=== PATIENT | female | born 1965 | race Caucasian/White ===

== ENCOUNTER 2019-03-07 15:20 | Observation (INO) ==
[2019-03-07] MEDS ORDERED: 0.9 % Sodium Chloride 1,000 ML ONE (15:37)
[2019-03-07] MEDS ORDERED: 0.9 % Sodium Chloride 1,000 ML IVC ONE ×2 (15:43→22:16)
[2019-03-07] MEDS ORDERED: Ondansetron 4 MG/2 ML VIAL IVP ONE ×2 (15:43→20:46)
[2019-03-07] MEDS ORDERED: *HR* FentaNYL (PF) 100 MCG/2 ML VIAL IVP ONE ×2 (15:43→20:45)
[2019-03-07 16:05] LABS: Basophils % 0.1 %; Eosinophils % 0.1 %; Hematocrit 26.1 % (35.3-44.9); Hemoglobin 8.1 g/dL (11.5-15.4); Immature Granulocytes % 1.5 % (0-4); Lymphocytes # 1.6 K/mcL (0.6-4.6); Lymphocytes % 7.5 %; Mean Corpuscular Hemoglobin 25.7 pg (28.0-33.3); Mean Corpuscular Volume 82.9 fL (83.0-100.0); Mean Platelet Volume 10.4 fL (9.4-12.4); Monocytes # 0.9 K/mcL (0.0-1.3); Neutrophils # 19.1 K/mcL (1.6-8.9); Platelet Count 423 K/mcL (140-400); Red Blood Count 3.15 M/mcL (3.82-4.97); Segmented Neutrophils % 86.8 %
--- NOTE | 2019-03-07 16:11 | Emergency Department Note ---
Disposition Clinical Impression: Pelvic mass Abdominal pain Qualifiers: Abdominal location: left lower quadrant Qualified Code(s): R10.32 - Left lower quadrant pain Disposition: Still a Patient Condition: Fair Forms: ED Satisfaction Letter, Work/School Release Time of Disposition: 17:46 General Adult HPI - General Chief complaint: ED Abdominal Pain Stated complaint: multiple complaints x's 2 weeks Time Seen by Provider: 03/07/19 15:26 Source: patient, EMS Mode of arrival: EMS Limitations: no limitations Nursing Notes Reviewed: Yes Vital Signs Reviewed: Yes - History of Present Illness HPI Narrative: Patient is a 53-year-old female that presents emergency Department with reports of abdominal pain. Patient states that the pain is located in her left lower quadrant. Patient denies any dysuria. Patient denies any vaginal discharge. Patient does state that she has had some chronic vaginal bleeding over the past year. Patient denies any fevers but states she does not have a thermometer. Patient states that she has had some nausea and vomiting. Patient states that she had a bowel movement this morning which is normal for her and was firm and formed. Patient states that she has had similar pain in the past and it was diverticulitis. Patient states that this is similar to that pain. Patient denies any blood in her stool or diarrhea. Pain Scale: 10 - Related Data Home Medications Medication Instructions Recorded Confirmed Albuterol Sulfate [Proair Hfa] 2 puff IH Q4H PRN 03/07/19 03/07/19 Ascorbate Calcium [Vitamin C] 500 mg PO BIDWM 03/07/19 03/07/19 Cholecalciferol (D-3) [Vitamin D] 2,000 unit PO DAILY 03/07/19 03/07/19 Ferrous Sulfate [Iron] 325 mg PO BIDWM 03/07/19 03/07/19 Lisinopril-HCTZ 20-12.5 [Prinzide 1 each PO DAILY 03/07/19 03/07/19 20-12.5] predniSONE [PredniSONE] 20 mg PO TIDWM 03/07/19 03/07/19 Allergies Allergy/AdvReac Type Severity Reaction Status Date / Time Sulfa (Sulfonamide AdvReac Rash Verified 01/16/18 10:46 Antibiotics) All systems ED: reviewed and negative except as stated. Constitutional: Denies: fever Cardiovascular: Denies: chest pain Respiratory: Denies: dyspnea Gastrointestinal: Denies: nausea, vomiting Genitourinary: Denies: urgency, dysuria, frequency Neurological: Denies: weakness, numbness, paresthesias Past Medical History - Past Medical History Medical history: Reports: hypertension Psychiatric history: Reports: no psych history - Social History Smoking Status: Never smoker Smokeless Tobacco Status: No Alcohol use: Reports: occasionally Drug use: Reports: none Physical Exam - General Limitations: no limitations General appearance: alert, in no apparent distress - Head Head exam: atraumatic, normocephalic - Eye Eye exam: Present: normal appearance, EOMI - Neck Neck exam: Present: normal inspection, full ROM, trachea midline - Respiratory Respiratory exam: Present: normal lung sounds bilaterally. Absent: respiratory distress, wheezes - Cardiovascular Cardiovascular exam: Present: regular rate, normal rhythm, normal heart sounds, +S1, +S2 - Abdominal Exam Abdominal exam: Present: soft, Non-Tender, normal bowel sounds - Neurological Exam Neurological exam: Present: alert, oriented X3 - Expanded Neurological Exam Speech: Present: fluid speech Cranial nerves: EOM function (II, III, IV, ): Normal, facial sensation (V): Normal, facial palsy (VII): Normal, gag reflex (IX): Normal, spinal accessory function (XI): Normal, tongue deviation (XII): Normal Cerebellar function: finger to nose: Normal, heel to [place]: Normal Motor strength - LUE: 5/5 Motor strength - RUE: 5/5 Motor strength - LLE: 5/5 Motor strength - RLE: 5/5 Upper motor neuron exam: pronator drift: Absent bilaterally Sensory exam upper extremity: light touch: Normal Sensory exam lower extremity: light touch: Normal Coma Scale Eye Opening: Spontaneous Coma Scale Motor Response: Obeys Commands Coma Scale Verbal Response: Oriented Coma Scale Total: 15 - Psychiatric Psychiatric exam: Present: normal affect, normal mood - Skin Skin exam: Present: warm, dry, intact Course Vital Signs Temperature 99.1 F 03/07/19 15:23 Pulse Rate 124 03/07/19 15:23 Respiratory Rate 16 03/07/19 15:23 Blood Pressure 94/60 03/07/19 15:23 O2 Sat by Pulse Oximetry 96 03/07/19 15:23 Temperature 99.1 F 03/07/19 15:23 Pulse Rate 110 03/07/19 16:39 Respiratory Rate 16 03/07/19 16:39 Blood Pressure 102/51 03/07/19 16:39 O2 Sat by Pulse Oximetry 95 03/07/19 16:39 Oxygen Delivery Oxygen Delivery Room Air Medical Decision Making - MDM Narrative Medical decision making narrative: Due the patient since emergency Department with reports of abdominal pain and generally not feeling well we will obtain basic laboratory testing as well as a CT scan of the head and abdomen and pelvis. The CT scan of the head was negative. The CT scan of the abdomen and pelvis showed a 7.8 x 10 cm mass in the left lower quadrant. This is a left adnexal ovarian mass. This could be ovarian abscess, possible torsion or neoplastic lesion. They recommended MRIs of the lumbar and pelvic region. Called and spoke with the radiologist he felt this is likely a neoplastic lesion due to possible metastasis to the lumbar spine. We will also obtain a pelvic ultrasound to evaluate for Doppler flow of the ovaries. Should this be a neoplastic lesion the patient will require transfer to the [facility] for FINANCIAL SERVICES ASSISTANT/ONC. Should this be a tubo-ovarian abscess or torsion the patient will be able to stay here and admitted to the hospital and likely surgical intervention will be required. Patient also has an elevated red blood cell count of 22. Hemoglobin is 8.1 which the patient states that she has had vaginal bleeding for approximately one year and has been more heavy recently. Patient received IV fluids. This time we will not transfuse the patient. Patient was signed out to the night team of Dr. Mcqueen and Blake please see their documentation for further medical decision making and final d isposition. - Medical Records Medical records reviewed: Yes I reviewed the patient's medical records. - Lab Data Lab results reviewed: Yes I reviewed the patient's lab results. Result diagrams: 03/07/19 15:48 03/07/19 15:48 Lab Results 03/07/19 03/07/19 03/07/19 Range/Units 15:48 15:48 15:48 WBC 22.0 H (4.3-11.1) K/mcL RBC 3.15 L (3.82-4.97) M/mcL Hgb 8.1 L (11.5-15.4) g/dL Hct 26.1 L (35.3-44.9) % MCV 82.9 L (83.0-100.0) fL MCH 25.7 L (28.0-33.3) pg MCHC 31.0 L (31.6-35.5) g/dL RDW 14.0 (11.5-14.5) % Plt Count 423 H (140-400) K/mcL MPV 10.4 (9.4-12.4) fL Immature Gran % 1.5 (0-4) % Seg Neutrophils % 86.8 % Lymphocytes % 7.5 % Monocytes % 4.0 % Eosinophils % 0.1 % Basophils % 0.1 % Neutrophils # 19.1 H (1.6-8.9) K/mcL Lymphocytes # 1.6 (0.6-4.6) K/mcL Monocytes # 0.9 (0.0-1.3) K/mcL Eosinophils # 0.0 (0.0-0.6) K/mcL Basophils # 0.0 (0.0-0.2) K/mcL Sodium 137 (136-145) mEq/L Potassium 3.7 (3.5-5.1) mEq/L Chloride 98 (98-107) mEq/L Carbon Dioxide 31 H (23-29) mEq/L BUN 16 (6-20) mg/dL Creatinine 0.66 (0.60-1.20) mg/dL Est GFR ( Amer) > 60 (> 60) Est GFR (Non-Af Amer) > 60 (> 60) BUN/Creatinine Ratio 24 (6-26) Glucose 134 H (70-105) mg/dL Calculated Osmolality 287 (280-300) Lactic Acid 1.1 (0.5-2.2) mmol/L Calcium 8.8 (8.6-10.3) mg/dL Total Bilirubin 1.0 (0.3-1.0) mg/dL Direct Bilirubin 0.4 H (0.0-0.2) mg/dL Indirect Bilirubin 0.6 (0.0-1.2) mg/dL AST 13 (13-39) Units/L ALT 24 (7-52) Units/L Alkaline Phosphatase 103 (34-104) Units/L Troponin I < 0.03 (< 0.04) ng/mL Serum Total Protein 6.1 L (6.4-8.9) g/dL Albumin 3.1 L (3.5-5.7) g/dL Globulin 3.0 (2.4-3.5) g/dL Albumin/Globulin Ratio 1.0 L (1.1-2.2) Lipase 3 L (11-82) Units/L - Radiology Data Radiology results reviewed: Yes I reviewed the patient's radiology results. Abdomen/Pelvis CT 03/07/19 15:43 IMPRESSION: 1. Pelvic left adnexal mass measuring 7.8 x 10.8 cm not previously seen. This may represent an ovarian abscess, ovarian torsion or neoplasm. 2. Retroperitoneal lymphadenopathy more prominent with nodes measuring up to 1.1 cm. Mild mesenteric lymphadenopathy. 3. Multiple bony lesions with the most pronounced at L4 measuring 2 cm. Some of this was previously seen as well. Hemangiomas are possible however metastatic disease should be considered. 4. Diffuse fatty infiltration of the liver. 5. Redemonstration of benign uterine fibroids. RECOMMENDATIONS: Pelvic and lumbar MRI for further evaluation. D/ / 03/07/2019 16:45:47 Roxy Lopez MD / [facility] Interpreting Provider: Roxy Lopez MD Head CT 03/07/19 15:54 IMPRESSION: No acute intracranial abnormality. D/ / Vincent Alvarez MD / Vincent Alvarez MD Interpreting Provider: Vincent Alvarez MD - EKG Data EKG #1 EKG attestation: Yes I reviewed and interpreted this EKG. EKG results narrative: EKG shows a sinus tachycardia at a rate of 124 bpm, MD interval 108, QRS duration 88, QTc of 450. There is no evidence of STEMI on EKG. This is compared to previous EKG on 07/09/14. Attestation Statement - Attestation Attestation: I, Presley Avendaño, examined this patient and my medical decision-making was reviewed with the FLIGHT STEWARD/PA/Advanced Practice Nurse/Resident Physician. I agree with the documented findings, disposition and treatment plan as described except to the extent set forth below. 53-year-old female presents emergency Department with multiple complaints. Patient states she has had vertigo symptoms over the past 2 weeks. She tried taking meclizine which did not improve her symptoms. She now is taking Dramamine with mild improvement. She did not have focal neurologic deficits on the exam. Laboratory evaluation shows that she is anemic much more so than her previous laboratory results one year ago. Patient reports having vaginal bleeding over the past 6 months which has been heavy. She has not followed up with REQUIREMENTS ANALYST physician or primary care physician for this vaginal bleeding. Patient also reports having abdominal pain which feels similar to her previous diverticulitis. She denies history of hematochezia or melena. Laboratory results show significant anemia and elevated white blood cell count. CT of the head did not show evidence of intracranial hemorrhage. CT of the abdomen and pelvis showed large adnexal mass which was concerning for possible malignancy with metastasis versus tubo-ovarian abscess versus ovarian torsion. We will obtain ultrasound of the pelvis to further evaluate this mass. Patient care will be transferred to Dr. Mcqueen pending ultrasound of the pelvis and disposition.
[2019-03-07 16:24] LABS: Alanine Aminotransferase 24 Units/L (7-52); Albumin 3.1 g/dL (3.5-5.7); Alkaline Phosphatase 103 Units/L (34-104); Aspartate Amino Transferase 13 Units/L (13-39); BUN/Creatinine Ratio 24 (6-26); Bilirubin,Direct 0.4 mg/dL (0.0-0.2); Bilirubin,Indirect 0.6 mg/dL (0.0-1.2); Blood Urea Nitrogen 16 mg/dL (6-20); Calcium 8.8 mg/dL (8.6-10.3); Carbon Dioxide 31 mEq/L (23-29); Chloride 98 mEq/L (98-107); Glucose 134 mg/dL (70-105); Lipase 3 Units/L (11-82); Osmolality,Calculated 287 (280-300); Potassium 3.7 mEq/L (3.5-5.1); Sodium 137 mEq/L (136-145); Total Protein 6.1 g/dL (6.4-8.9); Troponin I < 0.03 ng/mL (< 0.04); eGFR For African Americans > 60 (> 60); eGFR For Non-African Americans > 60 (> 60)
[2019-03-07] MEDS ORDERED: Gadolinium Contrast Agent (WT Based) IV PRN (17:10)
--- NOTE | 2019-03-07 17:59 | Emergency Department Note ---
Disposition Clinical Impression: Pelvic mass, Hydrosalpinx, Hematosalpinx, Lumbar disc lesion Abdominal pain Qualifiers: Abdominal location: generalized Qualified Code(s): R10.84 - Generalized abdominal pain Disposition: Admitted As Inpatient Condition: Serious Time of Disposition: 23:12 General Adult HPI - General Chief complaint: ED Abdominal Pain Stated complaint: multiple complaints x's 2 weeks Time Seen by Provider: 03/07/19 15:26 Source: patient, EMS Mode of arrival: EMS Limitations: no limitations - History of Present Illness HPI Narrative: Patient signed out by Dr. Burrell pending MRI and pelvic ultrasound. In short, patient is presenting with left lower quadrant abdominal pain. She also complains of chronic vaginal bleeding for the past few months. She denies chest pain, shortness of breath, lightheadedness. She denies fevers or chills at home. CT results showed large adnexal mass that was concerning for torsion, abscess or neoplasm. She received fentanyl and Zofran for abdominal pain. She received 1 L of IV fluids with improvement in her blood pressure. She still remains tachycardic. Please see his complete H&P, ROS, physical exam for complete documentation. Pain Scale: 10 - Related Data Home Medications Medication Instructions Recorded Confirmed Albuterol Sulfate [Proair Hfa] 2 puff IH Q4H PRN 03/07/19 03/07/19 Ascorbate Calcium [Vitamin C] 500 mg PO BIDWM 03/07/19 03/07/19 Cholecalciferol (D-3) [Vitamin D] 2,000 unit PO DAILY 03/07/19 03/07/19 Ferrous Sulfate [Iron] 325 mg PO BIDWM 03/07/19 03/07/19 Lisinopril-HCTZ 20-12.5 [Prinzide 1 each PO DAILY 03/07/19 03/07/19 20-12.5] predniSONE [PredniSONE] 20 mg PO TIDWM 03/07/19 03/07/19 Allergies Allergy/AdvReac Type Severity Reaction Status Date / Time Sulfa (Sulfonamide AdvReac Rash Verified 01/16/18 10:46 Antibiotics) Constitutional: Denies: fever Cardiovascular: Denies: chest pain Respiratory: Denies: dyspnea Gastrointestinal: Denies: nausea, vomiting Genitourinary: Denies: urgency, dysuria, frequency Neurological: Denies: weakness, numbness, paresthesias Past Medical History - Past Medical History Medical history: Reports: hypertension Psychiatric history: Reports: no psych history - Social History Smoking Status: Never smoker Smokeless Tobacco Status: No Alcohol use: Reports: occasionally Drug use: Reports: none Physical Exam - General Limitations: no limitations General appearance: alert, other (moderate distress) - Head Head exam: atraumatic, normocephalic - Eye Eye exam: Present: normal appearance, EOMI - ENT ENT exam: normal exam, normal oropharynx - Respiratory Respiratory exam: Present: normal lung sounds bilaterally. Absent: respiratory distress, wheezes - Cardiovascular Cardiovascular exam: Present: normal rhythm, tachycardia - Abdominal Exam Abdominal exam: Present: other (significant LLQ abdominal tenderness, but soft abdomen) - Extremities Exam Extremities exam: Present: normal inspection, normal capillary refill. Absent: pedal edema - Neurological Exam Neurological exam: Present: alert, oriented X3 - Psychiatric Psychiatric exam: Present: normal affect, normal mood - Skin Skin exam: Present: warm, dry Course Vital Signs Temperature 99.1 F 03/07/19 15:23 Pulse Rate 124 03/07/19 15:23 Respiratory Rate 16 03/07/19 15:23 Blood Pressure 94/60 03/07/19 15:23 O2 Sat by Pulse Oximetry 96 03/07/19 15:23 Temperature 99.1 F 03/07/19 15:23 Pulse Rate 110 03/07/19 21:29 Respiratory Rate 20 03/07/19 21:29 Blood Pressure 111/59 03/07/19 21:29 O2 Sat by Pulse Oximetry 99 03/07/19 21:29 Oxygen Delivery Oxygen Delivery Room Air Medical Decision Making - [facility] Narrative Medical decision making narrative: Patient was complaining of increased pain after returning from MRI. We will give fentanyl and Zofran. MRI results pending. 21:55 MRI results reviewed. There are multiple T1 hyperintense osseous lesions which partially suppressed on STIR sequences which are most compatible with atypical hemangioma. This will need to be correlated with CT imaging and nuclear medicine bone scan for further evaluation. Pelvic ultrasound shows markedly dilated left fallopian tube consistent with hydrosalpinx and hematosalpinx. There is also pyosalpinx. No definite tubo-ovarian abscess. There is suspected peritonitis. These results were discussed with on-call MANUSCRIPT READER, Jacki manager of supply chain and Dr. Nnoli. Another pelvic examination will be done and will send cultures for GC and chlamydia, vaginosis panel for suspected PID. We will also give another liter of IV fluids. Patient will be started on cefoxitin and doxycycline. We will repeat the patient's temperature. She still remains tachycardic. Patient will be admitted here to MANUSCRIPT READER service. 22:00 Pelvic examination completed with copious purulent bloody discharge. Cultures sent for GC/chlamydia, vaginosis panel. roof truss machine tender to palpation of the left lower quadrant. - Medical Records Medical records reviewed: Yes I reviewed the patient's medical records. - Lab Data Lab results reviewed: Yes I reviewed the patient's lab results. Result diagrams: 03/08/19 02:56 03/08/19 02:56 Lab Results 03/07/19 03/07/19 03/07/19 Range/Units 15:48 15:48 15:48 WBC 22.0 H (4.3-11.1) K/mcL RBC 3.15 L (3.82-4.97) M/mcL Hgb 8.1 L (11.5-15.4) g/dL Hct 26.1 L (35.3-44.9) % MCV 82.9 L (83.0-100.0) fL MCH 25.7 L (28.0-33.3) pg MCHC 31.0 L (31.6-35.5) g/dL RDW 14.0 (11.5-14.5) % Plt Count 423 H (140-400) K/mcL MPV 10.4 (9.4-12.4) fL Immature Gran % 1.5 (0-4) % Seg Neutrophils % 86.8 % Lymphocytes % 7.5 % Monocytes % 4.0 % Eosinophils % 0.1 % Basophils % 0.1 % Neutrophils # 19.1 H (1.6-8.9) K/mcL Lymphocytes # 1.6 (0.6-4.6) K/mcL Monocytes # 0.9 (0.0-1.3) K/mcL Eosinophils # 0.0 (0.0-0.6) K/mcL Basophils # 0.0 (0.0-0.2) K/mcL Sodium 137 (136-145) mEq/L Potassium 3.7 (3.5-5.1) mEq/L Chloride 98 (98-107) mEq/L Carbon Dioxide 31 H (23-29) mEq/L BUN 16 (6-20) mg/dL Creatinine 0.66 (0.60-1.20) mg/dL Est GFR ( Amer) > 60 (> 60) Est GFR (Non-Af Amer) > 60 (> 60) BUN/Creatinine Ratio 24 (6-26) Glucose 134 H (70-105) mg/dL Calculated Osmolality 287 (280-300) Lactic Acid 1.1 (0.5-2.2) mmol/L Calcium 8.8 (8.6-10.3) mg/dL Total Bilirubin 1.0 (0.3-1.0) mg/dL Direct Bilirubin 0.4 H (0.0-0.2) mg/dL Indirect Bilirubin 0.6 (0.0-1.2) mg/dL AST 13 (13-39) Units/L ALT 24 (7-52) Units/L Alkaline Phosphatase 103 (34-104) Units/L Troponin I < 0.03 (< 0.04) ng/mL Serum Total Protein 6.1 L (6.4-8.9) g/dL Albumin 3.1 L (3.5-5.7) g/dL Globulin 3.0 (2.4-3.5) g/dL Albumin/Globulin Ratio 1.0 L (1.1-2.2) Lipase 3 L (11-82) Units/L Blood Type Antibody Screen 03/07/19 Range/Units 17:26 WBC (4.3-11.1) K/mcL RBC (3.82-4.97) M/mcL Hgb (11.5-15.4) g/dL Hct (35.3-44.9) % MCV (83.0-100.0) fL MCH (28.0-33.3) pg MCHC (31.6-35.5) g/dL RDW (11.5-14.5) % Plt Count (140-400) K/mcL MPV (9.4-12.4) fL Immature Gran % (0-4) % Seg Neutrophils % % Lymphocytes % % Monocytes % % Eosinophils % % Basophils % % Neutrophils # (1.6-8.9) K/mcL Lymphocytes # (0.6-4.6) K/mcL Monocytes # (0.0-1.3) K/mcL Eosinophils # (0.0-0.6) K/mcL Basophils # (0.0-0.2) K/mcL Sodium (136-145) mEq/L Potassium (3.5-5.1) mEq/L Chloride (98-107) mEq/L Carbon Dioxide (23-29) mEq/L BUN (6-20) mg/dL Creatinine (0.60-1.20) mg/dL Est GFR ( Amer) (> 60) Est GFR (Non-Af Amer) (> 60) BUN/Creatinine Ratio (6-26) Glucose (70-105) mg/dL Calculated Osmolality (280-300) Lactic Acid (0.5-2.2) mmol/L Calcium (8.6-10.3) mg/dL Total Bilirubin (0.3-1.0) mg/dL Direct Bilirubin (0.0-0.2) mg/dL Indirect Bilirubin (0.0-1.2) mg/dL AST (13-39) Units/L ALT (7-52) Units/L Alkaline Phosphatase (34-104) Units/L Troponin I (< 0.04) ng/mL Serum Total Protein (6.4-8.9) g/dL Albumin (3.5-5.7) g/dL Globulin (2.4-3.5) g/dL Albumin/Globulin Ratio (1.1-2.2) Lipase (11-82) Units/L Blood Type A POSITIVE Antibody Screen NEGATIVE - Radiology Data Radiology results reviewed: Yes I reviewed the patient's radiology results. Abdomen/Pelvis CT 03/07/19 15:43 IMPRESSION: 1. Pelvic left adnexal mass measuring 7.8 x 10.8 cm not previously seen. This may represent an ovarian abscess, ovarian torsion or neoplasm. 2. Retroperitoneal lymphadenopathy more prominent with nodes measuring up to 1.1 cm. Mild mesenteric lymphadenopathy. 3. Multiple bony lesions with the most pronounced at L4 measuring 2 cm. Some of this was previously seen as well. Hemangiomas are possible however metastatic disease should be considered. 4. Diffuse fatty infiltration of the liver. 5. Redemonstration of benign uterine fibroids. RECOMMENDATIONS: Pelvic and lumbar MRI for further evaluation. D/ / 03/07/2019 16:45:47 Roxy Lopez MD / caroline Interpreting Provider: Roxy Lopez MD Head CT 03/07/19 15:54 IMPRESSION: No acute intracranial abnormality. D/ / Vincent Alvarez MD / Vincent Alvarez MD Interpreting Provider: Vincent Alvarez MD Abdomen/Pelvis/Transvag US 03/07/19 17:10 IMPRESSION: Fibroid uterus. The endometrial stripe is thickened, particularly if the patient is postmenopausal. Etiologies for thickening include hyperplasia, polyps, and carcinoma. Histopathologic correlation is recommended. Enlarged left ovary dominated by a complex cystic mass measuring up to 10.0 cm. See below recommendation. RECOMMENDATIONS: 10.0 cm indeterminate ovarian cyst. If patient is pre-menopausal, recommend MRI w/IV contrast or surgical evaluation. If patient is post-menopausal, recommend surgical evaluation. Reference: Radiology 2010 May;256(3):943-54 D/ / Marycarmen lOivas Cha, MD / Marycarmen Olivas Cha, MD Interpreting Provider: Marycarmen Olivas Cha, MD Lumbar Spine MRI 03/07/19 17:10 IMPRESSION: Please see separate MRI pelvis report for evaluation of pelvic mass. This is partially imaged on this examination. Multilevel degenerative changes of the lumbar spine, with [id number] spinal canal stenosis most prominent at L3-L4 and L4-L5 as detailed above. Multiple T1 hyperintense osseous lesions throughout the lumbar spine, which partially suppresses on STIR sequences. These are most compatible with atypical hemangioma. Additionally, there is enhancing lesion within L2 vertebral body. Although this may represent atypical hemangioma, correlation with CT imaging, and nuclear medicine bone scan is recommended to exclude less likely possibility of aggressive osseous lesions. Partially imaged 45 mm exophytic lesion arising from right kidney, most compatible with renal cyst statistically. This can be confirmed with nonemergent renal ultrasound. Mildly enlarged retroperitoneal lymph nodes are better seen on the CT abdomen examination. D/ / 03/07/2019 20:49:45 Mat Segura MD / rashid Interpreting Provider: Mat Segura MD Pelvis MRI 03/07/19 17:10 IMPRESSION: 1. Markedly dilated left fallopian tube consistent with hydrosalpinx. There appear to be blood products within the lumen consistent with hematosalpinx, and there is thickening and enhancement of the wall suggestive of pyosalpinx. No definite tubo-ovarian abscess is identified. 2. Suspected peritonitis. Trace free fluid is likely reactive. 3. Uterine adenomyosis and fibroids. D/ / Vincent Argueta MD / Vincent Argueta MD Interpreting Provider: Vincent Argueta MD Attestation Statement - Attestation Attestation: I have seen this patient with the resident physician, I have personally evaluated this patient. I had reviewed the chart and document dictation by the resident physician and aM in agreement with the information documented by the resident physician. Please see documentation by the resident physician for complete chart including past medical history, family medical history, review of systems, current history and physical and laboratory and imaging studies. I was present for all procedures, provided direct supervision for all procedures, was present for the entirety of all procedures and provided direct guidance during the procedures. Please see documentation by the resident physician for any procedures performed. I have reviewed all interpretations of EKGs, and reviewed all EKGs performed on patient's as well. I have also reviewed reports of imaging as provided by radiology.
[2019-03-07] MEDS ORDERED: *HR* LORazepam 1 MG TABLET PO ONE (18:41)
[2019-03-07] MEDS ORDERED: *HR* LORazepam 2 MG/ML VIAL IVP ONE (18:44)
[2019-03-07] MEDS ORDERED: *HR* LORazepam 2 MG/ML VIAL ONE (18:44)
[2019-03-07] MEDS ORDERED: cefOXitin 2,000 MG in Water for inj. (sterile) 20 ML IVP SCH (22:12)
[2019-03-07] MEDS ORDERED: Doxycycline 100 MG in 0.9 % Sodium Chloride Mini Bag 100 ML IVPB SCH (22:12)
[2019-03-07] MEDS ORDERED: Doxycycline 100 MG in 0.9 % Sodium Chloride Mini Bag 100 ML IVPB ONE (22:14)
[2019-03-07] MEDS ORDERED: cefTRIAXone 2,000 MG in Water for inj. (sterile) 20 ML IVP ONE (22:14)
--- NOTE | 2019-03-07 22:44 | Emergency Department Note ---
START Narrative - START START: I received signout on this patient from my colleague, patient undergo a CT scan, that was concerning for potential metastatic abnormality, versus infection versus ovarian torsion, based upon CT scan. There was also elevated white blood cell count decreased hemoglobin, and the plan was that if the patient evidence for potential gynecologic cancer that patient would require transfer to [facility], however if patient had abscess or ovarian torsion that our BATCH OPERATOR would be a little diminished this. They had spoken with BATCH OPERATOR prior. Patient underwent ultrasound that showed no evidence of torsion, cystic septated abnormality, unclear etiology. MRI shows findings concerning for pyosalpinx, and hydrosalpinx and potential peritonitis. These findings were discussed with BATCH OPERATOR, who will admit this patient for further evaluation and management, blood cultures were sent she was given IV ceftriaxone and IV doxycycline, pelvic exam performed at the request of BATCH OPERATOR demonstrated purulent bloody discharge. Culture sent. Patient admitted for further evaluation and management
[2019-03-07 23:36] LABS: Gardnerella DNA Not Detected (Not Detect); Trichomonas DNA Not Detected (Not Detect)
[2019-03-07 23:37] LABS: Candida DNA Not Detected (Not Detect)
--- NOTE | 2019-03-08 00:25 | OB/GYN History & Physical ---
Date of Encounter: 03/08/19 Time of Encounter: 00:25 Assessment and Plan (1) Vaginal bleeding Current visit: Yes Status: Acute No bleeding for 2 years after uterine ablation followed by irregular bleeding that is intermittently heavy for the last 6 months. No active bleeding right now. POC discussed with Dr. Zuniga. Will treat for PID at this time based on symptoms and imaging results as below. Ultrasound shows: 1. Fibroid uterus. 2. The endometrial stripe is thickened, particularly if the patient is postmenopausal. Etiologies for thickening include hyperplasia, polyps, and carcinoma. Histopathologic correlation is recommended. 3. Enlarged left ovary dominated by a complex cystic mass measuring up to 10.0cm. CT shows: 1. Pelvic left adnexal mass measuring 7.8 x 10.8 cm not previously seen. This may represent an ovarian abscess, ovarian torsion or neoplasm. 2. Retroperitoneal lymphadenopathy more prominent with nodes measuring up to 1.1 cm. Mild mesenteric lymphadenopathy. 3. Multiple bony lesions with the most pronounced at L4 measuring 2 cm. Some of this was previously seen as well. Hemangiomas are possible however metastatic disease should be considered. 4. Diffuse fatty infiltration of the liver. 5. Redemonstration of benign uterine fibroids. MRI shows: 1. Markedly dilated left fallopian tube consistent with hydrosalpinx. There appear to be blood products within the lumen consistent with hematosalpinx, and there is thickening and enhancement of the wall suggestive of pyosalpinx. No definite tubo-ovarian abscess is identified. 2. Suspected peritonitis. Trace free fluid is likely reactive. 3. Uterine adenomyosis and fibroids. (2) Anemia due to chronic blood loss Current visit: Yes Status: Acute (3) Abdominal pain Current visit: Yes Status: Acute Pain is worse in upper abdomen than lower. Per imaging will begin treatment for possible PID/pyosalpinx. POC per Dr. Zuniga. Will continue close monitoring at this time. Qualifiers: Abdominal location: generalized Qualified Code(s): R10.84 - Generalized abdominal pain History of Present Illness Chief complaint: LLQ pain HPI: Ms. Beltre is a 53 year old female that presents emergency Department with reports of abdominal pain. Patient states that the pain is throughout her entire abdomen and is the worst in her right upper quadrant. Per report pt was complaining of LLQ pain but pt adamantly denies that she ever said that. She does report that she had a uterine ablation about 2 1/2 years ago for fibroids. This procedure was done by Dr. Jenkins at [facility]. She reports she had about 2 years with no bleeding after her ablation but then started bleeding about 6 months ago. She reports the bleeding occurs about 22/30 days per month on average with about 10-12 heavy days. She reports she goes through about 25 super tampons per day on the heavy days and then she may not bleed at all for a day or two. She reports yesterday was a 25 tampon day but she has not had any bleeding today. She denies any other vaginal discharge, itching or burning. No new sex partners and no concern for sexually transmitted infections. Pt denies any previous abdominal surgeries. Patient states that she has had some nausea and vomiting. Patient states that she had a bowel movement this morning which is normal for her and was firm and formed. Patient states that she has had similar pain in the past and it was diverticulitis. Patient states that this is similar to that pain. Patient denies any blood in her stool or diarrhea. Past Med Surg Social Fam HX - Past Medical History Medical history: hypertension Psychiatric history: no psych history - Past Surgical History Additional surgical history: uterine ablation - Social History Smoking Status: Never smoker Smokeless Tobacco Status: No Alcohol use: occasionally Drug use: none - Additional Family History Additional family history: Pt reports great grandmother with cervical CA and another great grandparent with tobacco related lung CA, she denies any family history of hereditary types of CA including colon, breast, uterine, ovarian Obstetrical History - Pregnancies : 2 Para: 2 Medications and Allergies Albuterol Sulfate [Proair Hfa] 2 puff IH Q4H PRN 03/07/19 [History] Ascorbate Calcium [Vitamin C] 500 mg PO BIDWM 03/07/19 [History] Cholecalciferol (D-3) [Vitamin D] 2,000 unit PO DAILY 03/07/19 [History] Ferrous Sulfate [Iron] 325 mg PO BIDWM 03/07/19 [History] Lisinopril-HCTZ 20-12.5 [Prinzide 20-12.5] 1 each PO DAILY 03/07/19 [History] predniSONE [PredniSONE] 20 mg PO TIDWM 03/07/19 [History] Allergy/AdvReac Type Severity Reaction Status Date / Time Sulfa (Sulfonamide AdvReac Rash Verified 01/16/18 10:46 Antibiotics) Review of System OB - Constitutional Constitutional ROS IM: fatigue, no fever(s) - Cardiovascular Cardiovascular: dyspnea, rapid heart rate, no chest pain - Respiratory Respiratory: dyspnea, other (has proair for use as needed) - Gastrointestinal Gastrointestinal: abdominal pain, nausea, no loose stools - Genitourinary Genitourinary: no dysuria - Menstruation Menstruation: other (irregular bleeding x6 months) - Neurological Nerological: headache(s) - Endocrine Endocrine: fatigue - Hematologic/Lymphatic Hematologic/Lymphatic: no easy bleeding Exam - Vital Signs Vital signs: Initial Vital Signs Temp Pulse Resp BP Pulse Ox 99.1 F 124 16 94/60 96 03/07/19 15:23 03/07/19 15:23 03/07/19 15:23 03/07/19 15:23 03/07/19 15:23 - Constitutional Constitutional: moderate distress, obese - HEENT HEENT: Mucus Membranes Moist - Lungs Respiratory exam: CTAB - Cardiovascular Cardiovascular exam: tachycardia - Abdomen Abdomen: Present: bowel sounds hypoactive, diffuse tenderness, guarding noted Abdomen detail: right upper quadrant: tenderness (worst in RUQ), right lower quadrant: tenderness, left upper quadrant: tenderness, left lower quadrant: tenderness - Extremities Extremities exam: normal inspection - Comments Comments: pelvic exam performed in ER Results Result Diagrams: 03/07/19 15:48 03/07/19 15:48 Abnormal lab results WBC 22.0 K/mcL (4.3-11.1) H 03/07/19 15:48 RBC 3.15 M/mcL (3.82-4.97) L 03/07/19 15:48 Hgb 8.1 g/dL (11.5-15.4) L 03/07/19 15:48 Hct 26.1 % (35.3-44.9) L 03/07/19 15:48 MCV 82.9 fL (83.0-100.0) L 03/07/19 15:48 MCH 25.7 pg (28.0-33.3) L 03/07/19 15:48 MCHC 31.0 g/dL (31.6-35.5) L 03/07/19 15:48 Plt Count 423 K/mcL (140-400) H 03/07/19 15:48 19.1 K/mcL (1.6-8.9) H 03/07/19 15:48 Carbon Dioxide 31 mEq/L (23-29) H 03/07/19 15:48 Glucose 134 mg/dL (70-105) H 03/07/19 15:48 0.4 mg/dL (0.0-0.2) H 03/07/19 15:48 6.1 g/dL (6.4-8.9) L 03/07/19 15:48 3.1 g/dL (3.5-5.7) L 03/07/19 15:48 1.0 (1.1-2.2) L 03/07/19 15:48 3 Units/L (11-82) L 03/07/19 15:48 All other labs normal.
[2019-03-08] MEDS ORDERED: *HR* Promethazine 25 MG/ML VIAL IVP PRN (01:12)
[2019-03-08] MEDS ORDERED: Ondansetron 4 MG/2 ML VIAL IVP PRN (01:12)
[2019-03-08] MEDS ORDERED: 0.9 % Sodium Chloride 1,000 ML IVC SCH (01:15)
[2019-03-08] MEDS ORDERED: *HR* HYDROcodone/Acet 5/325 mg TABLET PO PRN (01:15)
[2019-03-08] MEDS ORDERED: Ibuprofen 600 MG TABLET PO PRN (01:33)
[2019-03-08 03:22] LABS: Basophils % 0.2 %; Eosinophils % 0.1 %; Hemoglobin 7.6 g/dL (11.5-15.4); Immature Granulocytes % 1.7 % (0-4); Lymphocytes # 1.2 K/mcL (0.6-4.6); Lymphocytes % 6.3 %; Mean Corpuscular HGB Conc 30.4 g/dL (31.6-35.5); Mean Corpuscular Hemoglobin 25.2 pg (28.0-33.3); Mean Corpuscular Volume 83.1 fL (83.0-100.0); Mean Platelet Volume 10.2 fL (9.4-12.4); Monocytes # 0.9 K/mcL (0.0-1.3); Monocytes % 4.5 %; Platelet Count 390 K/mcL (140-400); Red Blood Count 3.01 M/mcL (3.82-4.97); Red Cell Distribution Width 14.2 % (11.5-14.5); Segmented Neutrophils % 87.2 %; White Blood Count 19.5 K/mcL (4.3-11.1)
[2019-03-08 03:39] LABS: Alanine Aminotransferase 18 Units/L (7-52); Albumin 2.9 g/dL (3.5-5.7); Alkaline Phosphatase 95 Units/L (34-104); Amylase 11 Units/L (29-103); Aspartate Amino Transferase 10 Units/L (13-39); BUN/Creatinine Ratio 17 (6-26); Blood Urea Nitrogen 12 mg/dL (6-20); Calcium 8.7 mg/dL (8.6-10.3); Carbon Dioxide 27 mEq/L (23-29); Chloride 100 mEq/L (98-107); Glucose 135 mg/dL (70-105); Osmolality,Calculated 286 (280-300); Potassium 3.6 mEq/L (3.5-5.1); Sodium 137 mEq/L (136-145); Total Protein 5.9 g/dL (6.4-8.9); eGFR For African Americans > 60 (> 60); eGFR For Non-African Americans > 60 (> 60)
[2019-03-08 03:56] VITALS: BP 107/62
[2019-03-08 07:10] LABS: Estimated Average Glucose 105 mg/dl
--- NOTE | 2019-03-08 10:45 | Electrocardiograph Report ---
[facility] Test Date: 2019-03-07 Pat Name: Rosy Beltre Department: [id number] Room: [facility] Gender: F Heading Maker: : 1965 Requested By: Jeff Burrell Order Number: [id number] Reading MD: Dominic Lucero Measurements Intervals [place] Rate: 124 P: 64 CT: 108 QRS: 62 QRSD: 88 T: 31 QT: 313 QTc: 450 Interpretive Statements Sinus tachycardia Borderline prolonged QT interval Electronically Signed On 03-08-2019 10:44:16 EDT by Dominic Lucero
== END 2019-03-08 04:15 | disposition other institution (70) ==
LOC: 1NENUPED 15:20 → EMEROOARM 15:20 → 1NENUPED 23:40
PROVIDERS: ADMIT Student in an Organized Health Care Education/Training Program; ATTEND Student in an Organized Health Care Education/Training Program